=== PATIENT | female | born 1985 | race African-American/Black ===

== ENCOUNTER 2020-05-20 06:42 | Emergency (ER) | payer OTHER ==
[~2020-05-20] VITALS: Ht 162.6 cm; Wt 68.0 kg
[2020-05-20] MEDS ORDERED: ONDANSETRON HCL 4MG/2ML INJ IV STA (07:31)
[2020-05-20] MEDS ORDERED: SODIUM CHLORIDE 0.9% 1,000 ML IV ONE (07:45)
[2020-05-20] MEDS ORDERED: KETOROLAC 30MG/ML VIAL IV ONE (07:45)
[2020-05-20 08:24] LABS: BASOPHILS % 0.7 % (0.0-2.0); EOSINOPHILS % 0.1 % (0.0-5.0); HEMATOCRIT. 42.1 % (36.0-48.0); HEMOGLOBIN. 13.8 g/dL (12.0-16.0); LYMPHOCYTES % 22.3 % (20.0-50.0); MEAN CORPUSCULAR HEMOGLOBIN 26.6 pg (28.0-32.0); MEAN CORPUSCULAR VOLUME 81.1 fL (81.0-99.0); MEAN PLATELET VOLUME 8.7 fl (7.4-10.4); MONOCYTES % 5.3 % (2.0-8.0); NEUTROPHILS % 71.6 % (40.0-76.0); PLATELET 178 x1000/uL (130-400); RED BLOOD CELL COUNT 5.19 mill/uL (4.2-5.4); RED CELL DISTRIBUTION WIDTH 14.7 % (11.6-14.6)
[2020-05-20 08:36] LABS: INR 1.1; PROTHROMBIN TIME 11.1 sec (9.6-11.0)
[2020-05-20 08:37] LABS: CHLORIDE 103 mEq/L (98-107)
[2020-05-20 08:55] LABS: HCG SCREEN NEGATIVE
[2020-05-20 09:04] VITALS: BP 141/78
[2020-05-20] MEDS ORDERED: TOPUD MT (09:52)
[2020-05-20] MEDS ORDERED: ONDA4TAB5 MT (09:52)
== END 2020-05-20 10:01 | disposition home or self-care (01) ==
LOC: ER 06:42
DX: R10.13 Epigastric pain (principal); R11.2 Nausea with vomiting, unspecified; R03.0 Elevated blood-pressure reading, without diagnosis of hypertension
CPT/HCPCS: 36415; 80053; 83690; 84703; 85025; 85610; 96361; 96374; 96375; 99284; J1885; J2405; J7030

== ENCOUNTER 2020-05-23 00:09 | Emergency (ER) | payer OTHER ==
[~2020-05-23] VITALS: Ht 162.6 cm; Wt 68.0 kg
[~2020-05-23 00:09] MED LIST: ONDA4TAB5 MT; TOPUD MT
[2020-05-23] MEDS ORDERED: MAGNESIUM/ALUMINUM HYDROXIDE/SIMETHICONE 30ML UDC PO STA (00:40)
[2020-05-23] MEDS ORDERED: HYDROCODONE/ACETAMINOPHEN 5/325MG TABLET PO STA (00:40)
[2020-05-23] MEDS ORDERED: FAMOTIDINE 20MG TABLET PO ONE (00:45)
[2020-05-23 01:20] LABS: BASOPHILS % 0.4 % (0.0-2.0); EOSINOPHILS % 0.8 % (0.0-5.0); HEMOGLOBIN. 13.6 g/dL (12.0-16.0); LYMPHOCYTES % 24.6 % (20.0-50.0); MEAN CORPUSCULAR HEMOGLOBIN 26.6 pg (28.0-32.0); MEAN CORPUSCULAR VOLUME 82.2 fL (81.0-99.0); MEAN PLATELET VOLUME 8.6 fl (7.4-10.4); MONOCYTES % 5.8 % (2.0-8.0); NEUTROPHILS % 68.4 % (40.0-76.0); PLATELET 191 x1000/uL (130-400); RED BLOOD CELL COUNT 5.11 mill/uL (4.2-5.4); RED CELL DISTRIBUTION WIDTH 14.4 % (11.6-14.6)
[2020-05-23 01:31] LABS: CHLORIDE 105 mEq/L (98-107)
[2020-05-23 01:37] LABS: HCG SCREEN NEGATIVE
[2020-05-23 01:59] LABS: INR 1.1; PROTHROMBIN TIME 11.4 sec (9.6-11.0)
[2020-05-23] MEDS ORDERED: ONDANSETRON 4MG ODT PO ONE (02:45)
[2020-05-23] MEDS ORDERED: HYDROCODONE/ACETAMINOPHEN 10/325MG TABLET PO NR (03:45)
[2020-05-23] MEDS ORDERED: FAMOTIDINE 20MG TABLET PO NR (03:45)
[2020-05-23] MEDS ORDERED: PROT40 MT (04:37)
[2020-05-23 04:45] VITALS: BP 125/88
[2020-05-23] MEDS ORDERED: PANTOPRAZOLE 40MG DR TABLET PO ONE (04:45)
== END 2020-05-23 05:19 | disposition home or self-care (01) ==
LOC: ER 00:09
DX: R10.13 Epigastric pain (principal); Z79.899 Other long term (current) drug therapy
CPT/HCPCS: 36415; 76705; 80053; 83690; 84703; 85025; 85610; 93005; 99285; Q0162